=== PATIENT | female | born 1945 | race Caucasian/White ===

== ENCOUNTER 2024-07-17 14:49 | Emergency (ER) | payer SELFPAY ==
[~2024-07-17] VITALS: Ht 170.2 cm; Wt 61.2 kg
[2024-07-17] MEDS ORDERED: Droperidol 5 mg/2 ml Vial IV ONE (15:20)
[2024-07-17] MEDS ORDERED: Midazolam HCl 1MG / ML 2ML Vial IV ONE (15:20)
[2024-07-17] MEDS ORDERED: levETIRAcetam 2,000 MG in NS 100 ML IV ONE (15:20)
[2024-07-17 15:24] LABS: BASOPHILS ABSOLUTE AUTO 0.07 K/mm3 (0.00-0.23); BASOPHILS PERCENT AUTO 1 % (0-2); EOSINOPHILS ABSOLUTE AUTO 0.09 K/mm3 (0.00-0.68); EOSINOPHILS PERCENT AUTO 1 % (0-6); Hematocrit 40.4 % (33.0-51.0); Hemoglobin 13.5 g/dL (11.5-16.0); IMMATURE GRAN ABSOLUTE AUTO 0.03 K/mm3 (0.00-0.10); IMMATURE GRAN PERCENT AUTO 0 % (0-1); LYMPHOCYTES ABSOLUTE AUTO 1.67 K/mm3 (0.84-5.20); LYMPHOCYTES PERCENT AUTO 18 % (21-46); MONOCYTES ABSOLUTE AUTO 0.48 K/mm3 (0.16-1.47); MONOCYTES PERCENT AUTO 5 % (4-13); Mean Corpuscular HGB 32.4 pg (26.0-34.0); Mean Corpuscular HGB Conc 33.4 g/dL (31.5-36.5); Mean Corpuscular Volume 97 fL (80-100); Mean Platelet Volume 10.7 fL (9.1-12.4); NEUTROPHILS ABSOLUTE AUTO 7.08 K/mm3 (1.96-9.15); NEUTROPHILS PERCENT AUTO 75 % (41-73); Platelet Count 221 K/mm3 (150-400); RDW Coefficient Variation 12.6 % (11.7-14.2); RDW Standard Deviation 45.4 fL (35.1-46.3); Red Blood Cell Count 4.17 M/mm3 (3.80-5.20); White Blood Cell Count 9.42 K/mm3 (4.00-11.30)
[2024-07-17] MEDS ORDERED: ATOR10 PO (15:29)
[2024-07-17] MEDS ORDERED: ELIQUIS5 M2 PO (15:29)
[2024-07-17] MEDS ORDERED: QUET25 PO (15:30)
[2024-07-17] MEDS ORDERED: LOSARTAN POTASS50 M1 PO (15:31)
[2024-07-17] MEDS ORDERED: BUSP5 PO (15:31)
[2024-07-17 15:56] LABS: Albumin, Blood 3.5 g/dL (3.4-5.0); Albumin/Globulin Ratio 1.3 (0.8-1.8); Bilirubin, Total 0.6 mg/dL (0.1-1.0); Bun/Creatinine Ratio 17.4 (12.0-20.0); Calcium, Blood 8.6 mg/dL (8.5-10.1); Creatinine, Blood 0.98 mg/dL (0.40-1.00); Globulin, Blood 2.7 g/dL (2.2-4.0); Total Protein, Blood 6.2 g/dL (6.4-8.2)
[2024-07-17] MEDS ORDERED: LEVE500 PO (16:07)
== END 2024-07-17 16:59 | disposition home or self-care (01) ==
LOC: ER 14:49
PROVIDERS: Student in an Organized Health Care Education/Training Program
DX: R56.9 Unspecified convulsions (principal); Z86.59 Personal history of other mental and behavioral disorders
CPT/HCPCS: 70450; 80053; 83735; 85025; 96374; 96375; 99285-25; J1790; J1953; J2250